=== PATIENT | female | born 2000 | race Caucasian/White ===

== ENCOUNTER 2022-03-18 14:39 | Emergency (ER) | payer SELFPAY ==
[2022-03-18 14:57] VITALS: BP 148/108; PULSE 108; RESP 16; TEMP 37.3; O2SAT 100
[2022-03-18 15:01] VITALS: BP 148/108; PULSE 108; RESP 16; TEMP 37.3; O2SAT 100
--- NOTE | 2022-03-18 15:11 | ED.GENADULT ---
HPI - General Adult General Chief complaint: Ear Stated complaint: rt ear pain/drainage Source: patient Mode of arrival: ambulatory Limitations: no limitations History of Present Illness HPI narrative: Patient presents for evaluation of right-sided ear pain and muffled hearing. She indicates 6 days ago she had some sinus congestion and developed a sore throat a couple days later. She notes postnasal drainage, yellow nasal discharge and cough. Her sore throat has improved. One of her friend's recently had respiratory symptoms. She denies any fever, chills, nausea, vomiting or diarrhea. She took some generic mucinex DM which has helped with several of her symptoms. She is mostly concerned about residual right ear pain. She states she has had problems with cerumen impaction in the past. She applied some warm moist heat to the right side of her face. She initially had a popping sensation in the ear after applying the heat. She continues to have muffled hearing. Related Data Allergies Allergy/AdvReac Type Severity Reaction Status Date / Time No Known Allergies Allergy Verified 03/18/22 15:01 Review of Systems Review of Systems: CONSTITUTIONAL: Denies fever, chills, or sweats. EYES: Denies visual changes, redness, or discharge. ENT: Reports sinus congestion, postnasal drainage or throat, right-sided otalgia, muffled hearing on the right CARDIOVASCULAR: Denies chest pain, palpitations, or edema. RESPIRATORY: Reports cough, which is improved. Denies shortness of breath. GASTROINTESTINAL: Denies abdominal pain, nausea, vomiting, or diarrhea. GENITOURINARY: Denies dysuria or hematuria. SKIN: Denies rash or itching. MUSCULOSKELETAL: Denies back pain, joint pain, or myalgia. NEUROLOGIC: Denies headache, numbness, dizziness, or weakness. PSYCHIATRIC: Denies anxiety or depression. [facility] Past Medical History Medical History No pertinent past medical history Surgical History Surgical History No pertinent past surgical history Family History Family History Mother Family history non-contributory Social History Social History Smoking status: Never smoker Substance use: never Gender identity (if verbalized by the patient): Female Spiritual care concerns: No Exam Narrative: GENERAL: Well-appearing, well-nourished, and in no acute distress. HEAD: Normocephalic, atraumatic. EYES: PERRLA and EOMI. ENT: Nares clear, no rhinorrhea or epistaxis. Mucous membranes moist. Oropharynx without tonsillar hypertrophy exudate or other lesions. There is yellow exudate noted in right ear canal which obscures visualization of the tympanic membrane NECK: Supple. No adenopathy or masses. No carotid bruits or JVD CHEST: Clear to auscultation. No respiratory distress. No wheezes rales or rhonchi HEART: Regular rate and rhythm. No murmur heard. Normal peripheral pulses. ABDOMEN: Soft, nontender, nondistended, normal active bowel sounds. EXTREMITIES: Normal range of motion. No edema. SKIN: Warm, dry, no rash. NEURO: No focal deficits. Alert and oriented x3. PSYCH: Normal mood and affect. Course Course Emergency Course: this is a 21-year-old female who presented for evaluation of right-sided otalgia. She had yellow exudate in her ear canal on exam. I irrigated the right ear with water and hydrogen peroxide. Cerumen was removed. Ear canal was erythematous in appearance as was the right TM. I was unable to determine whether tympanic membrane was fully intact. The some fluid in front of the tympanic membrane obscured full visualization. She does have evidence of otitis media so will treat with Augmentin. She also has erythema in the right ear canal which will treat with ofloxacin. She s
== END 2022-03-18 15:31 | disposition home or self-care (01) ==
PROVIDERS: Emergency Provider Nurse Practitioner
DX: H61.21 Impacted cerumen, right ear (principal); H66.91 Otitis media, unspecified, right ear
CPT/HCPCS: 69209; 99213; G0463

== ENCOUNTER 2024-02-05 23:25 | Emergency (ER) | payer OTHER, SELFPAY ==
--- NOTE | ~2024-02-05 | XR_ITS ---
XR chest 2V Ordering provider: Shiv Marshall MD History: 23 years Female with . LEFT SIDE CHEST PAIN VOMITING . Comparison: None. FINDINGS: MEDIASTINUM: The cardiac silhouette is not enlarged. LUNGS: No infiltrates, effusions or pneumothorax. OTHER: No free air under the diaphragm. IMPRESSION: No acute cardiopulmonary pathology. Reviewed, dictated and finalized at location A. 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
[2024-02-05 23:26] VITALS: BP 138/86; PULSE 140; RESP 24; TEMP 36.4; O2SAT 100
--- NOTE | 2024-02-05 23:26 | ECG_ITS ---
Test Date: 2024-02-05 23:35:00 Measurements Intervals [place] Rate: 132 P: 64 WA: 92 QRS: 76 QRSD: 93 T: 12 QT: 302 QTc: 448 Interpretive Statements SINUS TACHYCARDIA WITH SHORT WA INTERVAL NONSPECIFIC ST & T-WAVE ABNORMALITY No previous ECG available for comparison Electronically Signed On 02-06-2024 12:42:51 [employer] OPERATOR by Parrish Lui M.D.
[2024-02-05 23:52] LABS: Basophils Absolute Auto 0.1 K/mm3 (0.0-0.1); Basophils Percent Auto 0.3 % (0.2-1.2); Eosinophils Absolute Auto 0.1 K/mm3 (0-0.3); Eosinophils Percent Auto 0.6 % (0-4.4); Hematocrit 42.2 % (37.0-47.0); Hemoglobin 15.5 g/dL (12.0-15.0); Immature Granulocyte Absolute 0.07 K/mm3 (0.00-0.031); Immature Granulocyte Percent A 0.5 % (0-0.5); Lymphocytes Absolute Auto 3.09 K/mm3 (0.9-3.2); Lymphocytes Percent Auto 19.9 % (18.3-44.2); Mean Corpuscular HGB Conc 36.7 g/dl (32-36); Mean Corpuscular Hemoglobin 32.3 pg (26-34); Mean Corpuscular Volume 87.9 fl (80-100); Mean Platelet Volume 9.8 fl (7.4-10.4); Monocytes Absolute Auto 0.9 K/mm3 (0.1-0.6); Monocytes Percent Auto 5.5 % (2.6-8.5); Neutrophils Absolute Auto 11.4 K/mm3 (1.3-6.7); Neutrophils Percent Auto 73.2 % (45.5-73.1); Platelet Count Result 486 k/mm3 (150-375); Red Cell Distribution Width 11.8 % (11.5-14.5); White Blood Count 15.5 K/mm3 (4.5-10.0)
[2024-02-06 00:03] LABS: Alanine Aminotransferase 10 U/L (6-35); Albumin Level 5.3 g/dL (3.5-5.1); Alkaline Phosphatase 98 U/L (38-126); Anion Gap 15 mmol/L (4-12); Aspartate Amino Transferase 22 U/L (14-36); Bilirubin,Total 1.1 mg/dL (0.2-1.3); Blood Urea Nitrogen 9 mg/dL (7-17); Calcium 9.9 mg/dL (8.4-10.2); Carbon Dioxide 18 mmol/L (22-30); Chloride 105 mmol/L (98-107); Estimated CRCL calculation 118 ml/min; Estimated Glomerular Filt Rate > 60; Glucose 151 mg/dL (65-110); INR 1.1; Lipase 110 U/L (23-300); Potassium 3.2 mmol/L (3.4-5.0); Prothrombin Time 14.6 Seconds (11.1-14.7); Sodium 138 mmol/L (137-145)
[2024-02-06 00:14] LABS: Troponin I < 0.012 ng/mL (0.000-0.034)
[2024-02-06 01:57] VITALS: BP 130/90; PULSE 100; RESP 17; O2SAT 100
--- NOTE | 2024-02-06 02:26 | ED_ITS ---
HPI - Chest Pain General Chief Complaint: Chest Pain Stated Complaint: chest pain Time Seen by Provider: 02/06/24 02:16 Source: patient Mode of arrival: ambulatory Limitations: no limitations History of Present Illness HPI narrative: This is a 23 year old female who presents to the ED for chief complaint of sudden-onset chest pain, palpitations, upper extremity tingling and shortness of breath today. Also reports associated nausea and vomiting. States this started in the early afternoon while she was just lying in bed. Reports that she has been dealing with increasing depression lately and has been hard to get out of bed. States that she was concern for a panic attack but symptoms had persisted longer than expected for this. Denies fevers, chills, recent hospitalization or immobilization, cough, cancer history, leg swelling. Upon my arrival, patient is feeling asymptomatic. Related Data Allergies Allergy/AdvReac Type Severity Reaction Status Date / Time No Known Allergies Allergy Verified 03/18/22 15:01 Review of Systems Review of Systems: All systems as dictated in [facility] Past Medical History Medical History (Updated 02/06/24 @ 02:48 by Austin Oglesby PA-C) No pertinent past medical history Surgical History Surgical History No pertinent past surgical history Family History Family History Mother Family history non-contributory Social History Social History Smoking status: Never smoker Substance use: never Living arrangements: dorm student housing Occupation/Education: student Gender identity (if verbalized by the patient): Female Spiritual care concerns: No Exam Narrative: GENERAL: Well-appearing, well-nourished, and in no acute distress. HEAD: Normocephalic, atraumatic. EYES: PERRLA and EOMI. ENT: Nares clear, no rhinorrhea or epistaxis. Mucous membranes moist. Oropharynx without tonsillar hypertrophy exudate or other lesions. NECK: Supple. No adenopathy or masses. CHEST: No respiratory distress. Clear to auscultation. No wheezes rales or rhonchi HEART: Regular rate and rhythm. No murmur heard. Normal peripheral pulses. ABDOMEN: Soft, nontender, nondistended, normal active bowel sounds. MSK: Normal range of motion. No edema. SKIN: Warm, dry, no rash. NEURO: Alert and oriented x4. No focal deficits. PSYCH: Normal mood and affect. Course Vital Signs Vital signs: Vital Signs Temperature 97.6 F 02/05/24 23:26 Pulse Rate 140 H 02/05/24 23:26 Respiratory Rate 24 H 02/05/24 23:26 Blood Pressure 138/86 02/05/24 23:26 Pulse Oximetry 100 02/05/24 23:26 Oxygen Delivery Room Air 02/05/24 23:26 Temperature 97.6 F 02/05/24 23:26 Pulse Rate 100 02/06/24 01:57 Respiratory Rate 17 02/06/24 01:57 Blood Pressure 130/90 02/06/24 01:57 Pulse Oximetry 100 02/06/24 01:57 Oxygen Delivery Room Air 02/06/24 01:57 MDM - Chest Pain MDM Narrative Medical decision making narrative: This is a 23-year-old female who presents to the ED for chief complaint of chest pain, palpitations, nausea and vomiting onset today. Vitals show initial tachycardia but otherwise normal. Exam is unremarkable overall. Vitals have normalized on my evaluation. EKG shows sinus tachycardia initially but no acute ischemia. Lab work shows elevated white count of 15.5,. Suspect acute phase reaction with panic attack. Troponin is normal. Heart score is 1. Chest x-ray is normal. Low risk overall for PE. See Wells score follow-up. On my initial evaluation, patient is feeling much improved compared to when she 1st arrived in triage. I suspect today symptoms were indicating panic disorder. Offered further evaluation for possible pulmonary embolism with D-dimer but patient feels well and ready to go home at this point. Pt will be discharged in stable condition. Return precautions given and supportive measures discussed. Pt is understanding and agreeable with plan for discharge and follow-up with PCP. Wells' Criteria for Pulmonary Embolism from [email or web address] on 02/06/2024 All calculations should be rechecked by clinician prior to use RESULT SUMMARY: 1.5 points Low risk group: 1.3% chance of PE in an ED population. Another study assigned scores <=4 as ?PE Unlikely? and had a 3% incidence of PE. INPUTS: Clinical signs and symptoms of DVT ?> 0 = No PE is #1 diagnosis OR equally likely ?> 0 = No Heart rate > 100 ?> 1.5 = Yes Immobilization at least 3 days OR surgery in the previous 4 weeks ?> 0 = No Previous, objectively diagnosed PE or DVT ?> 0 = No Hemoptysis ?> 0 = No Malignancy w/ treatment within 6 months or palliative ?> 0 = No Patient will be discharged in stable condition. Supportive measures discussed and return precautions given. Patient is understanding and agreeable with plan for discharge with PCP follow-up. Lab Data 02/05/24 23:45 02/05/24 23:45 Labs: Lab Results 02/05/24 Range/Units 23:45 WBC 15.5 H (4.5-10.0) K/mm3 RBC 4.80 (4.2-5.4) M/mm3 Hgb 15.5 H (12.0-15.0) g/dL Hct 42.2 (37.0-47.0) % MCV 87.9 (80-100) fl MCH 32.3 (26-34) pg MCHC 36.7 H (32-36) g/dl RDW 11.8 (11.5-14.5) % Plt Count 486 H (150-375) k/mm3 MPV 9.8 (7.4-10.4) fl Immature Gran % (Auto) 0.5 (0-0.5) % Neut % (Auto) 73.2 H (45.5-73.1) % Lymph % (Auto) 19.9 (18.3-44.2) % Bertie % (Auto) 5.5 (2.6-8.5) % Eos % (Auto) 0.6 (0-4.4) % Baso % (Auto) 0.3 (0.2-1.2) % Lymph # (Auto) 3.09 (0.9-3.2) K/mm3 Bertie # (Auto) 0.9 H (0.1-0.6) K/mm3 Eos # (Auto) 0.1 (0-0.3) K/mm3 Baso # (Auto) 0.1 (0.0-0.1) K/mm3 Abs Immat Gran (auto) 0.07 H (0.00-0.031) K/mm3 Absolute Neuts (auto) 11.4 H (1.3-6.7) K/mm3 Absolute Nucleated RBC 0.000 (0.0-0.012) K/mm3 Nucleated RBC % 0.0 (0.0-0.2) % PT 14.6 (11.1-14.7) Seconds INR 1.1 APTT 27.0 (22.3-36.8) Seconds Sodium 138 (137-145) mmol/L Potassium 3.2 L (3.4-5.0) mmol/L Chloride 105 (98-107) mmol/L Carbon Dioxide 18 L (22-30) mmol/L Anion Gap 15 H (4-12) mmol/L BUN 9 (7-17) mg/dL Creatinine 0.60 L (0.7-1.0) mg/dL Estim Creat Clear Calc 118 ml/min Estimated GFR > 60 (59 - ) Glucose 151 H (65-110) mg/dL Calcium 9.9 (8.4-10.2) mg/dL Total Bilirubin 1.1 (0.2-1.3) mg/dL AST 22 (14-36) U/L ALT 10 (6-35) U/L Alkaline Phosphatase 98 (38-126) U/L Troponin I < 0.012 (0.000-0.034) ng/mL Total Protein 9.0 H (6.3-8.2) g/dL Albumin 5.3 H (3.5-5.1) g/dL Lipase 110 (23-300) U/L Discharge Plan Discharge Clinical Impression: Atypical chest pain Patient Disposition: Home, Self-Care Condition: Stable Instructions: Antibiotic Form Additional Instructions: Your exam and imaging today show evidence of likely panic attack. Otherwise exam is reassuring. Please take your medications as prescribed and follow-up closely with your doctor on this issue. It also shows that your potassium was slightly low, so tried increase potassium intake at home. If you have any new or worsening symptoms please return to the ER for further evaluation. Prescriptions: No Action amoxicillin-pot clavulanate 875-125 mg tablet 1 tablet PO Q12H Qty: 20 0RF ofloxacin 0.3 % drops 10 drp RIGHT EAR DAILY 7 Days Qty: 10 0RF Follow-up/Referrals: UNKNOWN,DOCTOR [Primary Care Provider] - Time of Disposition: 02:49 Quality HEART score for chest pain patients History: slightly suspicious ECG: non specific repolarization disturbance/LBTB/PM Age: < or = to 45 years Risk factors: no risk factors known Troponin: < or = to 1x normal limit Heart score: 1
[2024-02-06 02:47] VITALS: BP 128/92; PULSE 92; RESP 12; O2SAT 100
--- NOTE | 2024-02-06 02:53 | PC.NURSE ---
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 pt reports pain when she breaths. EDP made aware.
[2024-02-06 03:34] VITALS: BP 124/84; PULSE 80; RESP 16; O2SAT 95
[2024-02-06 03:58] VITALS: BP 124/84; PULSE 80; RESP 16; O2SAT 95
== END 2024-02-06 04:01 | disposition home or self-care (01) ==
PROVIDERS: Emergency Medicine; Emergency Provider Physician Assistant
DX: R07.89 Other chest pain (principal)
CPT/HCPCS: 36415; 71046; 80053; 83690; 84484; 85025; 85610; 85730; 93005; 99284